=== PATIENT | female | born 1980 | race American Indian/Alaskan Native ===

== ENCOUNTER 2017-05-04 11:00 | Inpatient (IN) | payer OTHER ==
[2017-05-04] MEDS ORDERED: REGLAN IV ONE (11:24)
[2017-05-04] MEDS ORDERED: PEPCID IV ONE (11:24)
[2017-05-04] MEDS ORDERED: BICITRA PO ONE (11:24)
--- NOTE | 2017-05-04 11:36 | History and Physical Report ---
History of Present Illness Date of examination: 05/04/17 Date of admission: 05/04/17 11:00 Chief complaint: Repeat C Section History of present illness: Pt is a 36yo BF EDC 05/09/17; EGA 39 2/7 weeks presents to L&D for a scheduled repeat C Section. She received care at [facility] since 17 weeks and course has been unremarkable except for previous C Section x 2. records are available and GBS is Negative. Past History Past Medical History: no pertinent history Past Surgical History: section (x2) Family/Genetic History: none Social history: no significant social history, - Obstetrical History Expected Date of Delivery: 05/09/17 Actual Gestation: 39 Week(s) 2 Day(s) : 2 Medications and Allergies Allergies Allergy/AdvReac Type Severity Reaction Status Date / Time No Known Allergies Allergy Verified 02/29/16 21:46 Home Medications Medication Instructions Recorded Confirmed Last Taken Type Ferrous Sulfate [Feosol 325 MG tab] 325 mg PO BID #60 tablet 05/04/17 Unknown Rx HYDROcodone/APAP 5-325 [[place] 1 each PO Q6HR PRN #30 tablet 05/04/17 Unknown Rx 5/325] Ibuprofen [Motrin] 800 mg PO Q8HR PRN #30 tablet 05/04/17 Unknown Rx Vit Calc,Iron,Folic 1 each PO DAILY #30 tablet 05/04/17 Unknown Rx [ Vitamins] Active Meds: Active Medications Cefazolin Sodium (Ancef/Sterile Water 2 Gm/20 Ml) 2 gm in 20 mls @ 80 mls/hr IV PREOP NR PRN Reason: Protocol Stop: 05/04/17 23:59 Lactated Ringer's (Lactated Ringers) 1,000 mls @ 2,250 mls/hr IV PREOP ION Stop: 05/05/17 12:27 Oxytocin/Sodium Chloride (Pitocin/Ns 20 Unit/1000ml Drip) 20 units in 1,000 mls @ 0 mls/hr IV TITR ION PRN Reason: As Directed Review of Systems All systems: negative - Physical Exam Breasts: Positive: deferred Cardiovascular: Regular rate Lungs: Positive: Clear to auscultation Abdomen: Positive: normal appearance, soft Genitourinary (Female): Positive: normal external genitalia Uterus: Positive: enlarged Extremities: Positive: normal - Obstetrical FHR: category 1 Uterine Contraction Monitor Mode: External Results Result Diagrams: 05/04/17 12:30 All other labs normal. Assessment and Plan - Patient Problems (1) 39 weeks gestation of Onset Date: 05/04/17 Current Visit: Yes Status: Acute Plan to address problem: A: IUP @ 39 2/7 weeks Previous C Section x 2 P: Admit to L&D for Repeat C Section (2) Previous delivery affecting Onset Date: 05/04/17 Current Visit: Yes Status: Acute
[2017-05-04] MEDS ORDERED: PITOCin/NS 20 UNIT/1000ML DRIP 20 UNITS/1,000 ML BAG IV SCH ×2 (12:00→15:00)
[2017-05-04] MEDS ORDERED: ANCEF/STERILE WATER 2 GM/20 ML 2 GM/20 ML SYRINGE IV NR (12:00)
[2017-05-04] MEDS ORDERED: LACTATED RINGERS 1,000 ML IV SCH (12:00)
[2017-05-04 12:46] LABS: Basophils % (Auto) 0.4 % (0.0-1.8); Eosinophils % (Auto) 1.4 % (0.0-4.3); Hematocrit 41.3 % (30.3-42.9); Hemoglobin 13.8 gm/dl (10.1-14.3); Mean Corpuscular HGB Conc 34 % (30-34); Mean Corpuscular Hemoglobin 32 pg (28-32); Mean Corpuscular Volume 95 fl (79-97); Red Blood Count 4.36 M/mm3 (3.65-5.03); Red Cell Distribution Width 13.8 % (13.2-15.2); White Blood Count 4.6 K/mm3 (4.5-11.0)
[2017-05-04 12:52] LABS: Platelet Count 111 K/mm3 (140-440)
[2017-05-04] MEDS ORDERED: MORPHINE ONE (13:28)
[2017-05-04] MEDS ORDERED: NACL 0.9% IR ONE (13:31)
[2017-05-04] MEDS ORDERED: WATER FOR IRRIG STERILE IR ONE (13:31)
[2017-05-04] MEDS ORDERED: ANCEF/STERILE WATER 2 GM/20 ML IV ONE (13:40)
[2017-05-04] MEDS ORDERED: ePHEDrine SULFATE ONE (13:46)
[2017-05-04] MEDS ORDERED: NACL 0.9% 1000 ML 1,000 ML ONE (13:59)
[2017-05-04] MEDS ORDERED: NEO SYNEPHRINE/NS Syringe(OR USE) IV ONE (14:00)
[2017-05-04] MEDS ORDERED: NORCO 5/325 PO PRN (14:36)
[2017-05-04] MEDS ORDERED: NARCAN 0.4 MG/1 ML IV PRN (14:36)
[2017-05-04] MEDS ORDERED: TUCKS PAD TP PRN (14:36)
[2017-05-04] MEDS ORDERED: SENOKOT PO PRN (14:36)
[2017-05-04] MEDS ORDERED: MILK OF MAGNESIA PO PRN (14:36)
[2017-05-04] MEDS ORDERED: LANSINOH TP PRN (14:36)
[2017-05-04] MEDS ORDERED: PHENERGAN PR PRN (14:36)
[2017-05-04] MEDS ORDERED: TYLENOL PO PRN (14:36)
[2017-05-04] MEDS ORDERED: MYLICON PO PRN (14:36)
[2017-05-04] MEDS ORDERED: MOTRIN PO PRN (14:36)
[2017-05-04] MEDS ORDERED: ZOFRAN IV PRN (14:36)
[2017-05-04] MEDS ORDERED: ANCEF/NS 1 GM/50 ML 1 GM/50 ML BAG IV SCH (15:00)
[2017-05-04] MEDS ORDERED: SODIUM CHLORIDE FLUSH SYRINGE 10 ML IV NR (15:00)
--- NOTE | 2017-05-04 15:01 | Operative Report ---
Operative Report Operative Report: Date of procedure: 05/04/2017 Pre-operative diagnosis: 1. Intrauterine at 39-7 weeks 2. Previous section 2 Post-operative diagnosis: Same Procedure name(s): Repeat low transverse section Surgeon: Grover Ross MD Hand Paster: None Anesthesia: Spinal anesthesia by Dr. De La Garza EBL: 700 mL's Findings: A 3985 g male infant Apgars 8 at 1 minute 9 at 5 minutes. Clear amniotic fluid. Normal uterus. Normal tubes and ovaries bilaterally. Procedure: After the patient was prepped and draped in usual sterile fashion, and after satisfactory level of epidural anesthesia was obtained, the skin knife was used to make a transverse skin incision, excising the previous skin scar. The incision was excised down to layer of the fascia, which was nicked in the midline and extended laterally using the Bovie cautery. The rectus muscles were dissected off the rectus fascia both superiorly and inferiorly. The rectus bellies in the midline, and the peritoneum was entered under direct visualization. The peritoneal incision was extended superiorly and inferiorly. A bladder flap was created and the bladder blade was then placed. The uterus was scored in a curvilinear linear fashion, entered in the midline revealing clear amniotic fluid. The 's head was delivered onto the surgical field, and the oropharynx and nasopharynx were bulb suctioned. The rest of the infant's body was delivered, cord was doubly clamped and cut and the was handed to the waiting respiratory team. The placenta was manually removed from the uterus, and the uterus removed from its normal anatomical position. After gentle uterine lavage, the incision was inspected and found to be without extensions. It was then closed in 2 layers using 0 Vicryl suture in a running interlocking fashion, the second layer imbricating the first. After good hemostasis was achieved, copious amounts or irrigation was performed, and the gutters were suctioned free of blood and blood clots. The Tisseel sealant was sprayed across the uterine incision. The uterus was then returned to its normal anatomical position, and after excellent hemostasis assured, the peritoneum was re-approximated using 3-0 Vicryl suture in a running interlocking fashion, and then the rectus muscles were re-approximated using 3-0 Vicryl suture in a [id number] configuration. The fascia was then re-approximated using 0 Vicryl suture in running interlocking fashion. The subcutaneous layer was made hemostatic using Bovie cautery, the Tisseel sealant was sprayed across the fascial incision and the skin edges re- approximated using 4-0 Vicryl suture in a sub-cuticular fashion. Patient tolerated the procedure well was transported to recovery in stable condition.
[2017-05-04] MEDS: TORADOL IV PRN (16:44)
--- NOTE | 2017-05-04 16:44 | Post Anesthesia Evaluation ---
- Post Anesthesia Evaluation Patient Participated: Yes Airway Patent: Yes Stable Respiratory Function: Yes Nausea/Vomiting: No Temp > 96.8F: Yes Pain Manageable: Yes Adequeate Hydration: Yes Anesthesia Complications: No Patient on Ventilator: No
--- NOTE | 2017-05-04 16:45 | Anesthesia Consultation ---
Anesthesia Consult and Med Hx Date of service: 05/04/17 - Airway Anesthetic Teeth Evaluation: Good ROM Head & Neck: Adequate Mental/Hyoid Distance: Adequate Mallampati Class: Class II Intubation Access Assessment: Probably Good - Pulmonary Exam CTA: Yes - Cardiac Exam Cardiac Exam: RRR - Pre-Operative Health Status ASA Pre-Surgery Classification: ASA3 Proposed Anesthetic Plan: Epidural, Spinal - Pulmonary Hx Asthma: No COPD: No Hx Pneumonia: No - Cardiovascular System Hx Hypertension: No - Central Nervous System Hx Seizures: No Hx Psychiatric Problems: No - Endocrine Hx Renal Disease: No Hx End Stage Renal Disease: No Hx Hypothyroidism: No Hx Hyperthyroidism: No - Hematic Hx Anemia: No Hx Sickle Cell Disease: No - Other Systems Hx Alcohol Use: No
[2017-05-04] MEDS: D5LR 1,000 ML IV SCH (19:14)
[2017-05-04] MEDS ORDERED: BENADRYL IV PRN (22:40)
[2017-05-05] MEDS: TORADOL IV PRN (03:00)
[2017-05-05] MEDS: D5LR 1,000 ML IV SCH (03:03)
[2017-05-05] MEDS: PERCOCET 5/325 PO PRN ×3 (05:20→20:37)
[2017-05-05 05:27] LABS: Hematocrit 33.2 % (30.3-42.9); Hemoglobin 11.5 gm/dl (10.1-14.3)
[2017-05-05] MEDS ORDERED: ANCEF/NS 1 GM/50 ML 1 GM/50 ML BAG IV SCH (06:00)
[2017-05-05] MEDS ORDERED: BOOSTRIX IM ONE (06:00)
--- NOTE | 2017-05-05 11:19 | Progress Note ---
Assessment and Plan - Patient Problems (1) 39 weeks gestation of Onset Date: 05/04/17 Current Visit: Yes Status: Resolved (2) Previous delivery affecting Onset Date: 05/04/17 Current Visit: Yes Status: Resolved (3) Status post repeat low transverse section Onset Date: 05/05/17 Current Visit: Yes Status: Resolved Plan to address problem: A: S/P Repeat C Section - POD #1 Doing well P: Continue RPOC Anticipate discharge in 24-48hrs Subjective - Subjective Date of service: 05/05/17 Principal diagnosis: s/p Repeat C Section - POD #1 Interval history: Pt is feeling well without complaints. Bleeding improved. Patient reports: appetite normal, voiding normally, pain well controlled, ambulating normally, no flatus : doing well, nursing well, bottle feeding Objective - Vital Signs Latest vital signs: Vital Signs Temp Pulse Resp BP BP Pulse Ox 05/05/17 08:39 97.4 F L 79 18 109/60 100 05/05/17 04:30 98.3 F 83 20 107/64 05/05/17 01:15 98.4 F 88 20 101/68 05/04/17 21:42 81 100/63 100 05/04/17 21:10 98.3 F 81 20 100/63 05/04/17 18:15 69 05/04/17 15:50 88 13 114/62 100 05/04/17 15:45 97.6 F 05/04/17 15:40 86 16 109/56 100 05/04/17 15:30 84 14 116/61 100 05/04/17 15:20 86 15 106/55 100 05/04/17 15:17 84 13 108/58 100 05/04/17 15:16 108/58 05/04/17 15:11 84 17 110/58 100 05/04/17 15:10 82 13 110/58 100 05/04/17 15:05 87 18 100/60 100 05/04/17 15:01 107/53 05/04/17 15:00 82 15 107/53 100 05/04/17 14:59 82 15 106/54 100 05/04/17 14:53 80 14 109/56 100 05/04/17 14:50 81 13 109/56 100 05/04/17 14:47 94 H 17 105/52 100 05/04/17 14:46 97 F L 89 12 111/42 05/04/17 14:43 85 11 L 05/04/17 13:10 84 99 05/04/17 13:09 85 98 05/04/17 13:04 79 94 05/04/17 13:03 115 H 78 L 05/04/17 13:02 79 98 05/04/17 12:59 79 99 05/04/17 12:54 91 H 99 05/04/17 12:51 74 94 05/04/17 12:50 208 H 82 L 05/04/17 12:36 45 L 45 L 05/04/17 12:32 72 98 05/04/17 12:31 74 99 05/04/17 12:26 80 98 05/04/17 12:21 77 98 05/04/17 12:16 77 97 05/04/17 12:11 88 98 05/04/17 12:06 70 99 05/04/17 12:00 79 99 05/04/17 11:55 82 99 05/04/17 11:50 79 113/66 99 Intake and Output 05/04/17 05/05/17 05/05/17 22:59 06:59 14:59 Intake Total 220 1217.083 Output Total 1100 700 Balance -880 517.083 Intake: IV 100 977.083 D5lr 1,000 ml @ 125 mls/ 977.083 hr IV DIRECT ION Rx#: [id number] Oral 120 240 Output: Urine 1100 700 Indwelling Catheter 800 700 Other: Total, Intake Amount 120 120 Total, Output Amount 800 700 - Exam Breasts: Present: deferred Cardiovascular: Present: Regular rate Lungs: Present: Clear to auscultation Abdomen: Present: normal appearance, soft Uterus: Present: normal, firm, fundal height below umbilicus Extremities: Present: normal Incision: Present: normal, dry, intact, dressed - Labs Labs: Abnormal lab results 05/04/17 Range/Units 12:30 Plt Count 111 L (140-440) K/mm3 Petroleum % (Auto) 9.2 H (0.0-7.3) % Lymph # 1.0 L (1.2-5.4) K/mm3 Laboratory Tests 05/04/17 05/04/17 05/05/17 12:30 12:30 05:02 WBC 4.6 RBC 4.36 Hgb 13.8 11.5 Hct 41.3 33.2 D MCV 95 MCH 32 MCHC 34 RDW 13.8 Plt Count 111 L Lymph % (Auto) 20.8 Petroleum % (Auto) 9.2 H Eos % (Auto) 1.4 Baso % (Auto) 0.4 Lymph # 1.0 L Petroleum # 0.4 Eos # 0.1 Baso # 0.0 Seg Neutrophils % 68.2 Seg Neutrophils # 3.1 Blood Type B POSITIVE Antibody Screen Negative
[2017-05-05] MEDS: FEOSOL PO SCH (11:45)
[2017-05-05] MEDS: PRENATAL VITAMIN PO SCH (11:46)
--- NOTE | 2017-05-05 13:38 | Progress Note ---
Subjective Date of service: 05/05/17 Principal diagnosis: s/p Repeat C Section - POD #1 Interval history: 1st POD after Patient is in the bed, comfortable. Pain is well controlled with pain meds. Ambulated well. No residual neurological deficit. Pruritus is no significant. No anesthesia complications Objective - Constitutional Vitals: Vital Signs - 12hr 05/05/17 05/05/17 04:30 08:39 Temperature 98.3 F 97.4 F L Pulse Rate 83 79 Respiratory 20 18 Rate Blood Pressure 109/60 Blood Pressure 107/64 [Left] O2 Sat by Pulse 100 Oximetry - Labs CBC & Chem 7: 05/05/17 05:02
[2017-05-05] MEDS ORDERED: M-M-R II VACCINE SUB-Q ONE (14:37)
[2017-05-06] MEDS: PERCOCET 5/325 PO PRN (05:12)
[2017-05-06] MEDS: FEOSOL PO SCH (11:52)
[2017-05-06] MEDS: PRENATAL VITAMIN PO SCH (11:52)
--- NOTE | 2017-05-06 12:04 | Progress Note ---
Assessment and Plan - Patient Problems (1) 39 weeks gestation of Onset Date: 05/04/17 Current Visit: Yes Status: Resolved (2) Previous delivery affecting Onset Date: 05/04/17 Current Visit: Yes Status: Resolved (3) Status post repeat low transverse section Onset Date: 05/05/17 Current Visit: Yes Status: Resolved Plan to address problem: A: S/P Repeat C Section - POD #2 Doing well P: May go home today per pt's request Subjective - Subjective Date of service: 05/06/17 Principal diagnosis: s/p Repeat C Section - POD #2 Interval history: Pt is feeling well without complaints. Bleeding improved. Tolerating a reg diet without nausea or vomiting, ambulating and voiding without difficulty. Patient reports: appetite normal, voiding normally, pain well controlled, flatus , ambulating normally : doing well, nursing well Objective - Vital Signs Latest vital signs: Vital Signs Temp Pulse Resp BP BP Pulse Ox 05/06/17 07:44 97.6 F 84 20 104/63 99 05/06/17 00:22 98.3 F 91 H 16 101/60 99 05/05/17 16:30 98.2 F 80 20 108/51 Intake and Output 05/05/17 05/06/17 05/06/17 22:59 06:59 14:59 Intake Total 400 Output Total 1000 Balance -1000 400 Intake: Oral 400 Output: Urine 1000 Void 1000 Other: Total, Intake Amount 400 Total, Output Amount 1000 # Voids Void 1 2 - Exam Breasts: Present: deferred Cardiovascular: Present: Regular rate Lungs: Present: Clear to auscultation Abdomen: Present: normal appearance, soft Uterus: Present: normal, firm, fundal height below umbilicus Extremities: Present: normal Incision: Present: normal, dry, intact
--- NOTE | 2017-05-06 12:07 | Discharge Summary ---
Providers - Providers Date of Admission: 05/04/17 11:00 Date of discharge: 05/06/17 Attending physician: DHEERAJ CORADO Primary care physician: DHEERAJ CORADO Hospitalization Reason for admission: section, IUP at term Delivery: Procedure: section, repeat low transverse Episiotomy: none Incision: normal, dry, intact Other procedures: none complications: none Discharge diagnosis: IUP at term delivered [place] baby: male Hospital course: Pt is a 36yo BF EDC 05/09/17; EGA 39 2/7 weeks who presented to L&D for a scheduled repeat C Section due to having previous C Section x 2. She tolerated the C Section well without complications, and by POD #2 she was tolerating a reg diet without nausea or vomiting, ambulating and voiding without difficulty. She was therefore discharged to home on POD #2 in stable condition. Condition at discharge: Good Disposition: DC-01 TO HOME OR SELFCARE - Discharge Diagnoses (1) 39 weeks gestation of Status: Resolved (2) Previous delivery affecting Status: Resolved (3) Status post repeat low transverse section Status: Resolved Plan - Discharge Medications Prescriptions: Ferrous Sulfate [Feosol 325 MG tab] 325 mg PO BID #60 tablet HYDROcodone/APAP 5-325 [[place] 5/325] 1 each PO Q6HR PRN #30 tablet PRN Reason: Pain Ibuprofen [Motrin] 800 mg PO Q8HR PRN #30 tablet PRN Reason: Moder Pain Unrelieved By [place] Vit Calc,Iron,Folic [ Vitamins] 1 each PO DAILY #30 tablet - Provider Discharge Summary Activity: routine, no sex for 6 weeks, no heavy lifting 4 weeks, no strenuous exercise Diet: routine Instructions: routine Additional instructions: [] Smoking cessation referral if applicable(refer to patient education folder for contact #) [] Refer to [facility] Booklet Call your doctor immediately for: * Fever > 100.5 * Heavy vaginal bleeding ( >1 pad per hour) * Severe persistent headache * Shortness of breath * Reddened, hot, painful area to leg or breast * Drainage or odor from incision. * Keep incision clean and dry at all times and follow doctor's instructions regarding bathing/showering - Follow up plan Follow up: DHEERAJ CORADO MD [Primary Care Provider] - 14 Days
[2017-05-06] MEDS ORDERED: Fluarix Quad 2017-2018(36 MOS+) IM ONE (17:15)
[2017-05-06 18:50] VITALS: BP 106/65
== END 2017-05-06 21:00 | disposition home or self-care (01) | DRG 766 ==
LOC: APU 11:00 → OB 15:57
PROVIDERS: ADMIT Obstetrics & Gynecology; ATTEND Obstetrics & Gynecology
PROC: 10D00Z1 Extraction of Products of Conception, Low, Open Approach (ICD-10-PCS; principal; 2017-05-06)
DX: O34.211 Maternal care for low transverse scar from previous cesarean delivery (principal); Z3A.39 39 weeks gestation of pregnancy; Z37.0 Single live birth
CPT/HCPCS: 36415; 85014; 85018; 85025; 86850; 86900; 86901; 90471; 90686; 90715; 99211; G0463; J0690; J1200; J1885; J2270; J2370; J2590; J2765; J7030; J7120; J7121